=== PATIENT | female | born 2000 | race Caucasian/White ===

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

== ENCOUNTER 2018-02-09 10:26 | Emergency (ER) | payer OTHER ==
--- NOTE | 2018-02-09 10:42 | ER Document Report ---
HPI - HPI Patient complains to provider of: Throat pain and vaginal itching and burning Onset: Other - 2 days Onset/Duration: Gradual Pain Level: 1 Context: 17-year-old female complaining of throat pain similar to when she has had tonsillitis in the past. Onset yesterday. No fever or chills. No runny nose or cough. She also is complaining of vaginal itching and burning when she urinates. She tried [id number] Monistat which did not help. She states that she and her are having problems so she may be at risk for STD. Gonorrhea and Chlamydia dirty urine has been sent to the lab and I will have her swab for a wet prep, and get a urinalysis and test. Associated Symptoms: None Exacerbated by: Other - See above Relieved by: Denies Similar symptoms previously: Yes Recently seen / treated by doctor: No - ROS ROS below otherwise negative: Yes Systems Reviewed and Negative: Yes All other systems reviewed and negative Past Medical History - General Information source: Patient - Social History Smoking Status: Never Smoker Frequency of alcohol use: None Drug Abuse: None Lives with: Family Family History: Arthritis, DM, Malignancy Pulmonary Medical History: Reports: Hx Pneumonia Endocrine Medical History: Reports: Other - Ovulatory infertility Renal/ Medical History: Reports: Hx Kidney Stones Musculoskeltal Medical History: Reports Hx Musculoskeletal Deformity, Reports Hx Musculoskeletal Trauma Traumatic Medical History: Reports: Hx Fractures - Hip right Past Surgical History: Reports: Hx Oral Surgery - [place] teeth, Other - Skin biopsy - Immunizations Immunizations up to date: Yes Hx Diphtheria, Pertussis, Tetanus Vaccination: Yes Vertical Provider Document - CONSTITUTIONAL Agree With Documented VS: Yes Exam Limitations: No Limitations General Appearance: No Apparent Distress - INFECTION CONTROL TRAVEL OUTSIDE OF THE [place] IN LAST 30 DAYS: No - HEENT HEENT: Pharyngeal Erythema - Large tonsils bilateral mild red no abscess. negative: Tympanic Membrane Red - NECK Neck: Supple, Lymphadenopathy-Left - Minimal anterior, Lymphadenopathy-Right - Minimal anterior, Other - No posterior nodes, history of mononucleosis several years ago - RESPIRATORY Respiratory: Breath Sounds Normal, No Respiratory Distress - CARDIOVASCULAR Cardiovascular: Regular Rate, Regular Rhythm - GI/ABDOMEN Gastrointestinal: Abdomen Soft, Abdomen Non-Tender, No Organomegaly - BACK Back: Normal Inspection. negative: CVA Tenderness-Right, CVA Tenderness-Left - MUSCULOSKELETAL/EXTREMETIES Musculoskeletal/Extremeties: MAEW - NEURO Level of Consciousness: Awake, Alert - DERM Integumentary: No Rash Course - Re-evaluation Re-evalutation: 02/09/18 12:21 Lab unable to determine anything on the wet prep because of the cream that she has in her vagina 02/09/18 22:39 gc and chlamydia negative. possible UTI with positive nitrtie will tx with keflec for tonsillitis and urine. Cx pending throat and urine. - Vital Signs Vital signs: Temp Pulse Resp BP Pulse Ox 98.2 F 77 16 117/61 99 02/09/18 10:31 02/09/18 10:31 02/09/18 10:31 02/09/18 10:31 02/09/18 10:31 Discharge - Discharge Clinical Impression: Tonsillitis Urinary tract infection Qualifiers: Urinary tract infection type: site unspecified Hematuria presence: without hematuria Qualified Code(s): N39.0 - Urinary tract infection, site not specified Vaginitis Qualifiers: Chronicity: acute Qualified Code(s): N76.0 - Acute vaginitis Condition: Good Disposition: HOME, SELF-CARE Instructions: Cephalexin ([facility]), Sore Throat ([facility]), Urinary Anesthetic Agent ( [facility]), Urinary Tract Infection ([facility]) Additional Instructions: Plenty of fluids Rapid strep is negative the throat culture is pending. Cephalexin will treat a tonsillitis The wet prep could not be performed because of the vaginal cream Urinalysis shows 2+ bacteria with a positive nitrite - possible UTI cephalexin for urinary tract infection the urine culture is pending Call me in 3 hours for the gonorrhea and Chlamydia test with [phone] Prescriptions: Cephalexin Monohydrate [Keflex 500 mg Capsule] 500 mg PO QID #40 capsule Fluconazole [Diflucan] 150 mg PO ONCE PRN #1 tablet PRN Reason: Forms: Return to Work
[2018-02-09 12:09] LABS: APPEARANCE,URINE SLIGHTLY-CLOUDY; BILIRUBIN,URINE NEGATIVE (NEGATIVE); COLOR,URINE YELLOW; EPITHELIALS (WET MOUNT) 3+ EPITHELIALS SEEN; GLUCOSE, URINE NEGATIVE (NEGATIVE); KETONES,URINE NEGATIVE (NEGATIVE); LEUKOCYTE ESTERASE,URINE LARGE (NEGATIVE); NITRITE,URINE POSITIVE (NEGATIVE); PROTEIN,URINE NEGATIVE (NEGATIVE); T.VAGINALIS (WET MOUNT) COULD NOT PERFORM; URINE SPECIFIC GRAVITY 1.005; UROBILINOGEN,URINE NEGATIVE mg/dL (<2.0); WBCS (WET MOUNT) COULD NOT PERFORM; YEAST (WET MOUNT) COULD NOT PERFORM
[2018-02-09 12:52] LABS: CHLAM PCR NOT DETECTED (NOT DETECT); GON PCR NOT DETECTED (NOT DETECT)
[2018-02-09] MEDS ORDERED: PHENAZOPYRIDINE HCL 100 MG TABLET PO ONE (12:54)
[2018-02-09] MEDS ORDERED: NITROFURANTOIN MONOHYD/M-CRYST 100 MG CAPSULE PO ONE (12:54)
[2018-02-09] MEDS ORDERED: CEPHALEXIN 500 MG CAPSULE PO ONE (12:55)
[2018-02-09 13:07] VITALS: BP 110/50
== END 2018-02-09 13:21 | disposition home or self-care (01) ==
LOC: ER 10:26
DX: J03.90 Acute tonsillitis, unspecified (principal); N39.0 Urinary tract infection, site not specified; N76.0 Acute vaginitis; R07.0 Pain in throat; R10.2 Pelvic and perineal pain
CPT/HCPCS: 99283; 87070; 87086; 87210; 87880; 81025; 87088; 81001; 87186; 87491; 87591; J3490

== ENCOUNTER 2018-05-29 22:24 | Emergency (ER) | payer OTHER ==
[2018-05-29] MEDS ORDERED: KETOROLAC TROMETHAMINE 60 MG/2 ML SDV IM ONE (23:52)
[2018-05-29] MEDS ORDERED: DEXAMETHASONE SOD PHOS INJ 10 MG/1 ML VIAL IM ONE (23:52)
[2018-05-29] MEDS ORDERED: LIDOCAINE 5% (700 MG) TRANSDERMAL ADH..PATCH TP ONE (23:52)
--- NOTE | 2018-05-29 23:59 | ER Document Report ---
HPI - HPI Pain Level: 4 Notes: Patient is a 18-year-old female with a history of chronic back pain who presents to the ED complaining of acute on chronic right lower back pain status post lifting injury earlier today. 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 Patient states that her pain is worse with twisting and bending movements and radiates up and down the right side of her back. Patient states that she does have sacroiliac pain as well. She is otherwise eating and drinking without any difficulties. She is urinating normally and having normal bowel movements. Denies any drug allergies. Denies any history of spinal abscess or injections. Denies IV drug use. Denies any headache, fever, URI, sore throat, chest pain, palpitations, syncope, cough, shortness of breath, wheeze, dyspnea, abdominal pain, nausea/vomiting/diarrhea, urinary retention, dysuria, hematuria, loss of control of bowel or bladder, numbness/tingling, saddle anesthesia, muscle paralysis/weakness, or rash. - ROS Systems Reviewed and Negative: Yes All other systems reviewed and negative - REPRODUCTIVE Reproductive: DENIES: : Past Medical History - Social History Smoking Status: Unknown if Ever Smoked Family History: Arthritis, DM, Malignancy Pulmonary Medical History: Reports: Hx Pneumonia Renal/ Medical History: Reports: Hx Kidney Stones. Denies: Hx Peritoneal Dialysis Musculoskeletal Medical History: Reports Hx Musculoskeletal Deformity, Reports Hx Musculoskeletal Trauma Traumatic Medical History: Reports: Hx Fractures - Hip right Past Surgical History: Reports: Hx Oral Surgery - [place] teeth, Other - Skin biopsy - Immunizations Immunizations up to date: Yes Hx Diphtheria, Pertussis, Tetanus Vaccination: Yes Vertical Provider Document - CONSTITUTIONAL Agree With Documented VS: Yes Notes: PHYSICAL EXAMINATION: GENERAL: Well-appearing, well-nourished and in no acute distress. LUNGS: Breath sounds clear to auscultation bilaterally and equal. No wheezes rales or rhonchi. HEART: Regular rate and rhythm without murmurs, rubs, gallops. ABDOMEN: Soft, nontender, nondistended abdomen. No guarding, no rebound. No masses appreciated. Normal bowel sounds present. No CVA tenderness bilaterally. No pulsatile mass Musculoskeletal: LE's b/l: FROM to passive/active. Strength 5+/5. No deficits noted. No bony tenderness of extremities. Back: FROM to passive/active. Strength 5+/5. No vertebral point tenderness, stepoffs, or deformities. No other bony tenderness, erythema, swelling, or ecchymosis. SLR negative b/l. + tenderness and trigger points to the L- paraspinal mm right side. Mild spasming. + rt SI jt tenderness. No foot drop Extremities: No cyanosis, clubbing, or edema b/l. Peripheral pulses 2+. Capillary refill less than 2 seconds. NEUROLOGICAL: Normal speech, normal gait. Normal sensory, motor exams. Reflexes 2+ b/l. PSYCH: Normal mood, normal affect. SKIN: Warm, Dry, normal turgor, no rashes or lesions noted. - INFECTION CONTROL TRAVEL OUTSIDE OF THE [place] IN LAST 30 DAYS: No Course - Re-evaluation Re-evalutation: 05/29/18 23:56 Patient is an afebrile, well-hydrated, 18-year-old female who presents to the ED with acute on chronic low back pain, suspect strain. Vitals are acceptable. PE is otherwise unremarkable for any focal neurological deficits. Patient was given Decadron, Toradol, and Lidoderm patch. She has no significant tachycardia, tachypnea, or hypoxia. She is nontoxic-appearing and is tolerating p.o. without difficulties. There are no signs of infection. No other red flag symptoms noted. No other labs or imaging warranted at this time based on H&P. Low suspicion for any meningitis, fracture, expanding/ruptured AAA, cauda equina syndrome, epidural mass lesion/abscess, herniated disc causing severe spinal stenosis, or other systemic infection at this time. Patient is aware that her condition can change from initial presentation and that she needs monitor symptoms closely for any acute changes. I will send her home with a prescription for baclofen and naproxen. Conservative measures otherwise for symptoms. Recheck with your PCM in 3-5 days. Consider consult with orthopedic/physical therapy. Return to the ED with any worsening/ concerning symptoms otherwise as reviewed discharge. Patient is in agreement. - Vital Signs Vital signs: Temp Pulse Resp BP Pulse Ox 98.0 F 64 16 126/78 H 100 05/29/18 23:45 05/29/18 23:45 05/29/18 23:45 05/29/18 23:45 05/29/18 23:45 Discharge - Discharge Clinical Impression: Low back pain Qualifiers: Chronicity: acute Back pain laterality: right Sciatica presence: without sciatica Qualified Code(s): M54.5 - Low back pain Condition: Stable Disposition: HOME, SELF-CARE Instructions: Low Back Pain ([facility]), Muscle Strain ([facility]) Additional Instructions: Rest, Ice, Compression, Elevation Use crutches/splint/sling as directed Tylenol/ibuprofen as needed Light stretches daily Strength exercises as able Moist heat and massage may help F/u with your PCP in 3-5 days for a recheck Consider consult(s) with Orthopedics/physical therapy for ongoing/worsening symptoms Return to the ED with any worsening symptoms and/or development of fever, headache, chest pain, palpitations, syncope, shortness of breath, trouble breathing, abdominal pain, n/v/d, muscle weakness/paralysis, numbness/tingling, swelling, redness, or other worsening symptoms that are concerning to you. Prescriptions: Baclofen [Baclofen 10 mg Tablet] 5 - 10 mg PO BID PRN #10 tablet PRN Reason: Naproxen 500 mg PO BID PRN #30 tablet PRN Reason: Forms: Elevated Blood Pressure, Return to Work Referrals: [facility] [Provider Group] - Follow up as needed
[2018-05-30 00:44] VITALS: BP 108/67
== END 2018-05-30 00:42 | disposition home or self-care (01) ==
LOC: ER 22:24
DX: G89.29 Other chronic pain (principal); M54.5 Low back pain; Z87.442 Personal history of urinary calculi
CPT/HCPCS: 99283; 96372; J1885; J1100

== ENCOUNTER 2018-08-06 11:22 | Emergency (ER) | payer OTHER ==
--- NOTE | 2018-08-06 11:42 | ER Document Report ---
ED Medical Screen (RME) - General Chief Complaint: Abdominal Pain Stated Complaint: STOMACH PAIN Time Seen by Provider: 08/06/18 11:30 TRAVEL OUTSIDE OF THE [place] IN LAST 30 DAYS: No - HPI Notes: 08/06/18 11:41 Acute onset of right lower quadrant abdominal pain - Related Data Allergies/Adverse Reactions: No Known Allergies Allergy (Verified 08/06/18 11:23) Past Medical History - Social History Chew tobacco use (# tins/day): No Frequency of alcohol use: None Drug Abuse: None Pulmonary Medical History: Reports: Hx Pneumonia Renal/ Medical History: Reports: Hx Kidney Stones. Denies: Hx Peritoneal Dialysis Musculoskeltal Medical History: Reports Hx Musculoskeletal Deformity, Reports Hx Musculoskeletal Trauma Traumatic Medical History: Reports: Hx Fractures - Hip right Past Surgical History: Reports: Hx Oral Surgery - [place] teeth, Other - Skin biopsy - Immunizations Immunizations up to date: Yes Hx Diphtheria, Pertussis, Tetanus Vaccination: Yes Review of Systems - Review of Systems Gastrointestinal: Abdominal pain Physical Exam - Vital signs Vitals: Temp Pulse Resp BP Pulse Ox 98.0 F 82 14 124/57 L 100 08/06/18 11:24 08/06/18 11:24 08/06/18 11:24 08/06/18 11:24 08/06/18 11:24 - Respiratory Respiratory status: No respiratory distress Chest status: Nontender Breath sounds: Normal Chest palpation: Normal - Cardiovascular Rhythm: Regular Heart sounds: Normal auscultation Course - Vital Signs Vital signs: Temp Pulse Resp BP Pulse Ox 98.0 F 82 14 124/57 L 100 08/06/18 11:24 08/06/18 11:24 08/06/18 11:24 08/06/18 11:24 08/06/18 11:24
[2018-08-06 12:11] LABS: ABSOLUTE EOSINOPHILS # (AUTO) 0.1 10^3/uL (0.0-0.6); ABSOLUTE LYMPHOCYTES (AUTO) 2.2 10^3/uL (0.5-4.7); ABSOLUTE MONOCYTES (AUTO) 0.7 10^3/uL (0.1-1.4); BASOPHILS % (AUTO) 0.7 % (0-2); EOSINOPHILS % (AUTO) 1.7 % (0-6); HEMATOCRIT 38.6 % (36.0-47.0); HEMOGLOBIN 13.6 g/dL (12.0-15.5); LYMPHOCYTES % (AUTO) 31.4 % (13-45); MEAN CORPUSCULAR HEMOGLOBIN 30.8 pg (27.0-33.4); MEAN CORPUSCULAR HGB CONC 35.3 g/dL (32.0-36.0); MEAN CORPUSCULAR VOLUME 87 fl (80-97); MONOCYTES % (AUTO) 9.7 % (3-13); PLATELET COUNT 272 10^3/uL (150-450); RED BLOOD COUNT 4.43 10^6/uL (3.72-5.28); RED CELL DISTRIBUTION WIDTH 12.2 % (11.5-14.0); SEGMENTED NEUTROPHILS % (AUTO) 56.5 % (42-78); TOTAL CELLS COUNTED % (AUTO) 100 %; WHITE BLOOD COUNT 7.1 10^3/uL (4.0-10.5)
[2018-08-06 12:18] LABS: AMORPHOUS SEDIMENT,URINE TRACE /HPF; APPEARANCE,URINE CLOUDY; BILIRUBIN,URINE NEGATIVE (NEGATIVE); COLOR,URINE YELLOW; GLUCOSE, URINE NEGATIVE (NEGATIVE); KETONES,URINE NEGATIVE (NEGATIVE); LEUKOCYTE ESTERASE,URINE TRACE (NEGATIVE); NITRITE,URINE NEGATIVE (NEGATIVE); PROTEIN,URINE NEGATIVE (NEGATIVE); URINE SPECIFIC GRAVITY 1.002; UROBILINOGEN,URINE NEGATIVE mg/dL (<2.0)
[2018-08-06 12:26] LABS: ALANINE AMINOTRANSFERASE 16 U/L (9-52); ALBUMIN 4.6 g/dL (3.5-5.0); ALKALINE PHOSPHATASE 41 U/L (38-126); ANION GAP 14 (5-19); ASPARTATE AMINO TRANSFERASE 22 U/L (14-36); BILIRUBIN,DIRECT 0.1 mg/dL (0.0-0.4); BILIRUBIN,TOTAL 0.4 mg/dL (0.2-1.3); BLOOD UREA NITROGEN 9 mg/dL (7-20); CALCIUM 9.9 mg/dL (8.4-10.2); CARBON DIOXIDE 23 mmol/L (22-30); CHLORIDE 106 mmol/L (98-107); GLUCOSE 78 mg/dL (75-110); LIPASE 68.9 U/L (23-300); POTASSIUM 4.3 mmol/L (3.6-5.0); SODIUM 142.7 mmol/L (137-145); TOTAL PROTEIN 7.5 g/dL (6.3-8.2)
--- NOTE | 2018-08-06 13:02 | ER Document Report ---
ED General - General Chief Complaint: Abdominal Pain Stated Complaint: STOMACH PAIN Time Seen by Provider: 08/06/18 11:30 TRAVEL OUTSIDE OF THE [place] IN LAST 30 DAYS: No - HPI Patient complains to provider of: Abdominal pain Onset: Other - This is a healthy 18-year-old female with a history of IBS as well as constipation and a remote lateral hip fracture in the right hip the presents for evaluation of abdominal pain upon waking up today when getting out of bed that caused her to double over says is worse than most pain that she has had in the past. She has been evaluated for these things in the past the emergency department all of which she is been told are gas her urinary infection. Denies any recent trauma, fever, chills, diarrhea, dysuria, emesis, chest pain shortness of breath or other symptoms. - Related Data Allergies/Adverse Reactions: No Known Allergies Allergy (Verified 08/06/18 11:23) Past Medical History - General Information source: Patient - Social History Smoking Status: Never Smoker Chew tobacco use (# tins/day): No Frequency of alcohol use: None Drug Abuse: None Family History: Arthritis, DM, Malignancy Patient has suicidal ideation: No Patient has homicidal ideation: No Pulmonary Medical History: Reports: Hx Pneumonia Renal/ Medical History: Reports: Hx Kidney Stones. Denies: Hx Peritoneal Dialysis Musculoskeletal Medical History: Reports Hx Musculoskeletal Deformity, Reports Hx Musculoskeletal Trauma Traumatic Medical History: Reports: Hx Fractures - Hip right Past Surgical History: Reports: Hx Oral Surgery - [place] teeth, Other - Skin biopsy - Immunizations Immunizations up to date: Yes Hx Diphtheria, Pertussis, Tetanus Vaccination: Yes Review of Systems - Review of Systems -: Yes All other systems reviewed and negative Physical Exam - Vital signs Vitals: Temp Pulse Resp BP Pulse Ox 98.0 F 82 14 124/57 L 100 08/06/18 11:24 08/06/18 11:24 08/06/18 11:24 08/06/18 11:24 08/06/18 11:24 Interpretation: Normal - General General appearance: Appears well, Alert - HEENT Head: Normocephalic, Atraumatic Eyes: Normal Pupils: PERRL - Respiratory Respiratory status: No respiratory distress Chest status: Nontender Breath sounds: Normal Chest palpation: Normal - Cardiovascular Rhythm: Regular Heart sounds: Normal auscultation Murmur: No - Abdominal Inspection: Normal Distension: No distension Bowel sounds: Normal Tenderness: Nontender Organomegaly: No organomegaly - Back Back: Normal, Nontender - Extremities General upper extremity: Normal inspection, Nontender, Normal color, Normal ROM , Normal temperature General lower extremity: Normal inspection, Nontender, Normal color, Normal ROM , Normal temperature, Normal weight bearing. No: Jesenia's sign - Neurological Neuro grossly intact: Yes Cognition: Normal Orientation: AAOx4 Kelly Coma Scale Eye Opening: Spontaneous Kelly Coma Scale Verbal: Oriented [place] Coma Scale Motor: Obeys Commands Kelly Coma Scale Total: 15 Speech: Normal Motor strength normal: LUE, RUE, LLE, RLE Sensory: Normal - Psychological Associated symptoms: Normal affect, Normal mood - Skin Skin Temperature: Warm Skin Moisture: Dry Skin Color: Normal Course - Re-evaluation Re-evalutation: 08/07/18 17:18 There is a well-appearing 18-year-old female who is got diffuse tenderness in the lower aspect of the abdomen more prominent on the right side. She does have history of constipation as well as IBS and some episodes of cystitis in the past. Through triage she had labs ordered an ultrasound of her pelvis, believe that she is got potentially an underlying abdominal pathology we discussed imaging options including ultrasound versus CT, we discussed the potential benefits of CT imaging at which time we discussed exposure to radiation. We agreed for proceeding with CT of the abdomen and pelvis as it is greater of diagnostic utility. while awaiting did obtain urinalysis was normal CBC which was normal CMP which was normal. Patient's abdominal pain there was some inflammation of the bladder potentially this patient has was nondiagnostic nonspecific without any focal rebound or guarding but worse in the right lower quadrant. CT the abdomen and pelvis did not demonstrate any obvious abnormalities, intermittent cystitis or hemorrhagic cystitis though her urinalysis does not support this diagnosis at this time. She has a chronic abdominal pain. Believe that she would benefit from follow- up with a primary physician, will give her an aggressive bowel regimen she does have a reasonable amount of stool distending the bowel which could potentially be the cause of her pain. Do not believe that this represents diverticulitis perforated viscous or appendicitis. Do not believe this represents ovarian torsion or other serious pelvic pathology as well. - Vital Signs Vital signs: Temp Pulse Resp BP Pulse Ox 97.1 F 61 16 106/62 100 08/06/18 16:56 08/06/18 16:56 08/06/18 16:56 08/06/18 16:56 08/06/18 16:56 - Laboratory Result Diagrams: 08/06/18 11:53 08/06/18 11:53 Laboratory results interpreted by me: 08/06/18 11:53 Ur Leukocyte Esterase TRACE H Discharge - Discharge Clinical Impression: Abdominal pain Qualifiers: Abdominal location: unspecified location Qualified Code(s): R10.9 - Unspecified abdominal pain Constipation Qualifiers: Constipation type: unspecified constipation type Qualified Code(s): K59.00 - Constipation, unspecified Condition: Good Disposition: HOME, SELF-CARE Instructions: Abdominal Pain ([facility]), Bulk Laxatives Additional Instructions: you were seen today in the emergency department for your abdominal pain. You had a cat scan, blood work and urine tests as well as a physical. You should use the bowel regimen prescribed to you. No obvious cause for your abdominal pain was identified. Continue to monitor your symptoms, in case of worsening abdominal pain, fevers, chills, inability to eat or drink return to the emergency room otherwise follow up with your primary this week. Prescriptions: Dicyclomine HCl [Bentyl 10 mg Capsule] 1 cap PO TID #30 cap Magnesium Citrate [Citrate of Magnesia 296 ml Bottle] 296 ml PO ONCE PRN #1 bottle PRN Reason: Polyethylene Glycol 3350 [Miralax Powder 17 gm/Packet] 1 packet PO BID #1 pkg Forms: Return to Work
[2018-08-06 13:40] LABS: CHLAM PCR NOT DETECTED (NOT DETECT); GON PCR NOT DETECTED (NOT DETECT)
--- NOTE | 2018-08-06 16:15 | RADIOLOGY REPORT (SQ) ---
EXAM DESCRIPTION: CT ABD/PELVIS WITH IV ORAL COMPLETED DATE/TIME: 08/06/2018 4:04 pm REASON FOR STUDY: concern for appendicitis COMPARISON: None. TECHNIQUE: CT scan of the abdomen and pelvis performed with intravenous and oral contrast using maria guadalupe norris scanning technique with dynamic intravenous contrast injection. Images reviewed with lung, soft t issue, and bone windows. Reconstructed coronal and sagittal MPR images reviewed. Delayed images for e valuation of the urinary system also acquired. All images stored on PACS. All CT scanners at this facility use dose modulation, iterative reconstruction, and/or weight based d osing when appropriate to reduce radiation dose to as low as reasonably achievable (ALARA). [facility]: Dose Right [facility]: CareDose [facility]: Dose Right [facility]: Teradose 4D [facility]: [employer] CONTRAST TYPE AND DOSE: 57 cc Omnipaque 350- low osmolar. RENAL FUNCTION: GFR > 60. RADIATION DOSE: CT Rad equipment meets quality standard of care and radiation dose reduction techniq ues were employed. CTDIvol: 4.8 - 4.8 mGy. DLP: 492 mGy-cm. . LIMITATIONS: None. FINDINGS: LOWER CHEST: No significant findings. No nodules or infiltrates. LIVER: Normal size. No masses. No dilated ducts. SPLEEN: Normal size. No focal lesions. PANCREAS: No masses. No significant calcifications. No adjacent inflammation or peripancreatic fluid collections. Pancreatic duct not dilated. GALLBLADDER: No identified stones by CT criteria. No inflammatory changes to suggest cholecystitis. ADRENAL GLANDS: No significant masses or asymmetry. RIGHT KIDNEY AND URETER: No solid masses. No significant calcifications. No hydronephrosis or hyd roureter. LEFT KIDNEY AND URETER: No solid masses. No significant calcifications. No hydronephrosis or hydr oureter. AORTA AND VESSELS: No aneurysm. No dissection. Renal arteries, SMA, celiac without stenosis. RETROPERITONEUM: No retroperitoneal adenopathy, hemorrhage or masses. BOWEL AND PERITONEAL CAVITY: No obstruction. No visualized masses. No free fluid. No inflammatory ch anges or thickening of bowel wall. APPENDIX: Normal. Sagittal image 37. PELVIS: Symmetric thickening of the urinary bladder wall. Trace free fluid. ABDOMINAL WALL: No masses. No hernias. BONES: No significant or acute findings. OTHER: No other significant finding. IMPRESSION: 1. Normal appendix. 2. Thick-walled urinary bladder, probably due to cystitis. TECHNICAL DOCUMENTATION: JOB ID: [id number] Quality ID # [id number]: Final reports with documentation of one or more dose reduction techniques (e.g., Au tomated exposure control, adjustment of the mA and/or kV according to patient size, use of iterative reconstruction technique) 2010 [employer]- All Rights Reserved Reading location - IP/workstation name: [email or web address]
[2018-08-06 16:57] VITALS: BP 106/62
== END 2018-08-06 17:00 | disposition home or self-care (01) ==
LOC: ER 11:22
DX: R10.9 Unspecified abdominal pain (principal); K59.00 Constipation, unspecified; Z87.442 Personal history of urinary calculi
CPT/HCPCS: 36415; 74177; 80053; 81001; 83690; 84702; 85025; 87491; 87591; 99284